=== PATIENT | male | born 1985 | race Two or more races ===

== ENCOUNTER 2022-03-11 13:15 | Emergency (ER) | payer MEDICAID, OTHER ==
[~2022-03-11] VITALS: Ht 167.6 cm; Wt 80.9 kg
[2022-03-11 14:17] VITALS: BP 127/74
[2022-03-11] MEDS ORDERED: IBUPROFEN 800 MG TAB PO ONE (14:30)
[2022-03-11] MEDS ORDERED: ACETAMINOPHEN 500 MG TAB PO ONE (14:45)
[2022-03-11] MEDS ORDERED: ACET-1080 PO (15:10)
[2022-03-11] MEDS ORDERED: METH750T22 PO (15:10)
== END 2022-03-11 15:14 | disposition home or self-care (01) ==
LOC: ER 13:15 → EDBD 13:15 → ER 15:14
DX: S29.012A Strain of muscle and tendon of back wall of thorax, initial encounter (principal); S29.011A Strain of muscle and tendon of front wall of thorax, initial encounter; Z79.899 Other long term (current) drug therapy; Z88.8 Allergy status to other drugs, medicaments and biological substances; V43.52XA Car driver injured in collision with other type car in traffic accident, initial encounter; Y93.89 Activity, other specified; Y92.410 Unspecified street and highway as the place of occurrence of the external cause; Y99.8 Other external cause status
CPT/HCPCS: 71046; 72070; 93005